=== PATIENT | female | born 1985 | race African-American/Black ===

== ENCOUNTER 2022-11-12 12:22 | Emergency (ER) | payer SELFPAY ==
[2022-11-12 13:03] VITALS: BP 113/72; PULSE 76; RESP 18; TEMP 99.7; BMI 25.2
== END 2022-11-12 12:47 | disposition home or self-care (01) ==
LOC: FER 12:22
DX: R50.9 Fever, unspecified (principal); R05.9 Cough, unspecified; B34.9 Viral infection, unspecified; Z20.822 Contact with and (suspected) exposure to COVID-19
CPT/HCPCS: 0241U-QW; 99283-25